=== PATIENT | male | born 1950 | race Caucasian/White ===

== ENCOUNTER 2023-08-17 09:34 | Inpatient (IN) | payer MEDICARE, OTHER ==
[~2023-08-17] VITALS: Ht 175.3 cm; Wt 83.9 kg
[~2023-08-17 09:34] MED LIST: EMPA10TA PO; ESCI10TA PO; GLIM1TAB18 PO; HYDR-3972 PO; ROSU20TA2 PO; TEST5GEL2 TD; ZOLP10TA2 PO
[2023-08-17] MEDS ORDERED: ASPIRIN 81 MG TAB.CHEW ONE (09:55)
[2023-08-17] MEDS: ASPIRIN 81 MG TAB.CHEW PO ONE (09:57)
[2023-08-17 10:14] LABS: BASOPHILS % (AUTO) 0.4 % (0.0-2.0); EOSINOPHILS # (AUTO) 0.5 K/uL (0.0-0.7); EOSINOPHILS % (AUTO) 6.3 % (0.0-6.0); HEMATOCRIT 44 % (39-51); HEMOGLOBIN 14.9 g/dL (13.5-17.5); LYMPHOCYTES # (AUTO) 1.3 K/uL (0.8-4.8); LYMPHOCYTES % (AUTO) 16.3 % (20.0-44.0); MEAN CORPUSCULAR HEMOGLOBIN 29 PG (26.0-33.0); MEAN CORPUSCULAR HGB CONC 34 g/dl (31.0-36.0); MEAN CORPUSCULAR VOLUME 85 fL (80-96); MONOCYTES # (AUTO) 0.7 K/uL (0.1-1.30); NEUTROPHILS # (AUTO) 5.6 K/uL (1.8-8.9); PLATELET COUNT (AUTO) 280 K/uL (150-450); RED BLOOD CELL COUNT(AUTO) 5.18 MIL/uL (4.5-6.0); RED CELL DISTRIBUTION WIDTH 14.6 % (11.5-15.0); WHITE BLOOD COUNT (AUTO) 8.2 K/uL (4.3-11.0)
[2023-08-17] MEDS ORDERED: IOHEXOL-350 100 ML VIAL IV ONE (10:19)
[2023-08-17] MEDS ORDERED: IV NS 0.9% 250 ML IV ONE (10:19)
[2023-08-17 10:27] LABS: CALCIUM, SERUM 8.8 mg/dL (8.5-10.1); CARBON DIOXIDE 28 mmol/L (21-32); CHLORIDE 104 mmol/L (98-107); CREATININE 0.9 mg/dL (0.6-1.3); D-DIMER 1.36 mg/L(FEU (0.17-0.50); GLUCOSE 110 mg/dL (74-106); INR 0.98 (0.91-1.10); PARTIAL THROMBOPLASTIN TIME 26.3 SEC (24.3-34.3); POTASSIUM 3.7 mmol/L (3.5-5.1); PROTHROMBIN TIME 10.4 SECS (9.2-11.1); SODIUM SERUM 140 mmol/L (136-145); UREA NITROGEN, BLOOD 10 mg/dL (7-18)
[2023-08-17] MEDS ORDERED: DULO20CA19 PO (12:01)
[2023-08-17] MEDS ORDERED: ZOLP10TA2 PO (12:01)
[2023-08-17] MEDS ORDERED: BRIM5DRO11 EACHEYE (12:01)
[2023-08-17] MEDS ORDERED: METF-881 PO (12:01)
[2023-08-17] MEDS ORDERED: ICOS1CAP PO (12:01)
[2023-08-17] MEDS ORDERED: NITROGLYCERIN 0.4 MG/TAB BOTTLE SL PRN (15:00)
[2023-08-17] MEDS ORDERED: MAGNESIUM HYDROXIDE 30 ML UDC PO PRN (15:00)
[2023-08-17] MEDS ORDERED: MORPHINE SULFATE INJ 2 MG/ML DISP.SYRIN IV PRN (15:00)
[2023-08-17] MEDS: ENOXAPARIN SODIUM 40 MG/0.4 ML DISP.SYRIN SQ SCH (15:00)
[2023-08-17] MEDS ORDERED: ONDANSETRON HCL/PF 4 MG/2 ML VIAL IVP PRN (15:00)
[2023-08-17] MEDS ORDERED: ACETAMINOPHEN 325 MG TABLET PO PRN (15:00)
[2023-08-17] MEDS ORDERED: Z GUARD REMEDY 4 OZ OINT TP PRN (15:00)
[2023-08-17] MEDS ORDERED: DEXTROSE 50%-WATER 50 ML DISP.SYRIN IV PRN (15:00)
[2023-08-17] MEDS ORDERED: ENOXAPARIN SODIUM 40 MG/0.4 ML DISP.SYRIN SQ ONE (15:12)
[2023-08-17] MEDS ORDERED: Medication Not On Formulary EA (Icosapent Ethyl (Vascepa) 1 GM) PO SCH (17:00)
[2023-08-17 18:25] VITALS: BP 139/82; TEMP 98.5; O2SAT 100
[2023-08-17] MEDS: BRIMONIDINE TARTRATE OPHT SOLN 5 ML BOTTLE EACHEYE SCH (18:39)
[2023-08-17] MEDS: ATORVASTATIN 40 MG TABLET PO SCH (18:40)
[2023-08-17] MEDS: DULOXETINE HCL 20 MG CAPSULE.DR PO SCH (18:40)
[2023-08-17] MEDS: BLOOD SUGAR DIAGNOSTIC 1 EACH STRIP VI SCH (18:40)
[2023-08-17 20:00] VITALS: BP 146/82; TEMP 97.9; O2SAT 96
[2023-08-17] MEDS: INSULIN REGULAR, HUMAN 100 UNIT/ML 3 ML VIAL SQ PRN (22:35)
[2023-08-17] MEDS: *INSULIN REGULAR(HUMULIN R)HUM 100 UNIT/ML VIAL SQ PRN (22:43)
[2023-08-17] MEDS: ZOLPIDEM TARTRATE 5 MG TABLET PO PRN (23:53)
[2023-08-17] MEDS: MAG HYDROX/AL HYDROX/SIMETH 30 ML UDC PO PRN (23:53)
[2023-08-18] VITALS: BP 133/79; TEMP 98.1; O2SAT 96
[2023-08-18] MEDS: ZOLPIDEM TARTRATE 5 MG TABLET PO ONE (01:10)
[2023-08-18 04:00] VITALS: BP 116/73; TEMP 97.7; O2SAT 96
[2023-08-18 06:52] LABS: BASOPHILS % (AUTO) 0.5 % (0.0-2.0); EOSINOPHILS # (AUTO) 0.6 K/uL (0.0-0.7); EOSINOPHILS % (AUTO) 8.2 % (0.0-6.0); HEMATOCRIT 42 % (39-51); HEMOGLOBIN 14.3 g/dL (13.5-17.5); LYMPHOCYTES # (AUTO) 1.6 K/uL (0.8-4.8); MEAN CORPUSCULAR HEMOGLOBIN 29 PG (26.0-33.0); MEAN CORPUSCULAR HGB CONC 34 g/dl (31.0-36.0); MEAN CORPUSCULAR VOLUME 85 fL (80-96); MONOCYTES # (AUTO) 0.8 K/uL (0.1-1.30); MONOCYTES % (AUTO) 11.3 % (2.0-12.0); NEUTROPHILS # (AUTO) 3.8 K/uL (1.8-8.9); PLATELET COUNT (AUTO) 271 K/uL (150-450); RED BLOOD CELL COUNT(AUTO) 4.98 MIL/uL (4.5-6.0); RED CELL DISTRIBUTION WIDTH 14.5 % (11.5-15.0); WHITE BLOOD COUNT (AUTO) 6.9 K/uL (4.3-11.0)
[2023-08-18 07:39] LABS: CALCIUM, SERUM 8.4 mg/dL (8.5-10.1); CARBON DIOXIDE 29 mmol/L (21-32); CHLORIDE 100 mmol/L (98-107); CREATININE 0.9 mg/dL (0.6-1.3); GLUCOSE 107 mg/dL (74-106); PHOSPHORUS 4.1 mg/dL (2.5-4.9); POTASSIUM 3.7 mmol/L (3.5-5.1); SODIUM SERUM 137 mmol/L (136-145); UREA NITROGEN, BLOOD 11 mg/dL (7-18)
[2023-08-18 08:00] VITALS: BP 131/83; TEMP 97.5; O2SAT 96
[2023-08-18] MEDS: METOPROLOL TARTRATE 50 MG TABLET PO SCH (08:37)
[2023-08-18 08:47] LABS: THYROID STIMULATING HORMONE 3.363 uIU/mL (0.358-3.74)
[2023-08-18 12:00] VITALS: BP 129/82; TEMP 97.9; O2SAT 97
[2023-08-18] MEDS ORDERED: ZOLPIDEM TARTRATE 5 MG TABLET PO ONE (12:48)
[2023-08-18] MEDS ORDERED: IOHEXOL-350 100 ML VIAL IV ONE (12:55)
[2023-08-18] MEDS ORDERED: CT SWABBABLE VALVE TRANS SET 1 EA INFUS.SET MC ONE (12:55)
[2023-08-18] MEDS ORDERED: IV NS 0.9% 250 ML IV ONE (12:55)
[2023-08-18] MEDS ORDERED: METOPROLOL TARTRATE 50 MG TABLET ONE (13:21)
[2023-08-18] MEDS ORDERED: METOPROLOL TARTRATE INJ 5 MG/5 ML AMPUL ONE ×4 (13:22→13:44)
[2023-08-18] MEDS: METOPROLOL TARTRATE INJ 5 MG/5 ML AMPUL IVP PRN (13:24)
[2023-08-18] MEDS: NITROGLYCERIN 0.4 MG/TAB BOTTLE SL ONE (13:58)
[2023-08-18 14:09] VITALS: BP 133/82
[2023-08-18] MEDS ORDERED: NITROGLYCERIN 0.4 MG/TAB BOTTLE ONE (15:03)
[2023-08-18] MEDS ORDERED: ZOLPIDEM TARTRATE 5 MG TABLET PO PRN (21:00)
== END 2023-08-18 15:40 | disposition home or self-care (01) | DRG 206 ==
LOC: ER 09:43 → TELE1 16:37
PROVIDERS: ADMIT Internal Medicine; ATTEND Internal Medicine
DX: M94.0 Chondrocostal junction syndrome [Tietze] (principal); E11.9 Type 2 diabetes mellitus without complications; I10 Essential (primary) hypertension; E78.5 Hyperlipidemia, unspecified; Z98.890 Other specified postprocedural states; Z79.84 Long term (current) use of oral hypoglycemic drugs; Z79.899 Other long term (current) drug therapy; Z86.718 Personal history of other venous thrombosis and embolism; F12.90 Cannabis use, unspecified, uncomplicated; Z86.711 Personal history of pulmonary embolism; Z79.01 Long term (current) use of anticoagulants
CPT/HCPCS: 36415; 71045-TC; 75574; 80048-TC; 80061-TC; 82962-TC; 83735-TC; 83880; 84100-TC; 84439-TC; 84443-TC; 84484-TC; 85025-TC; 85378-TC; 85730-TC; 93307-TC; G0378; J1650; J1815; J3490; J7050; Q9967

== ENCOUNTER 2024-11-22 19:50 | Emergency (ER) | payer OTHER, MEDICAID ==
[~2024-11-22] VITALS: Ht 175.3 cm; Wt 78.0 kg
[~2024-11-22 19:50] MED LIST changes: +BRIM5DRO11 EACHEYE; +DULO20CA19 PO; -ESCI10TA PO; -GLIM1TAB18 PO; -HYDR-3972 PO; +ICOS1CAP PO; +METF-881 PO; -TEST5GEL2 TD
[2024-11-22] MEDS: IV NS 0.9% 1,000 ML BAG IV ONE (20:57)
[2024-11-22] MEDS ORDERED: CEFEPIME 1 GM VIAL ONE (21:00)
[2024-11-22 21:05] LABS: PLATELET COUNT (AUTO) 287 K/uL (150-450); RED BLOOD CELL COUNT(AUTO) 5.38 MIL/uL (4.5-6.0); RED CELL DISTRIBUTION WIDTH 16.6 % (11.5-15.0); WHITE BLOOD COUNT (AUTO) 5.6 K/uL (4.3-11.0)
[2024-11-22] MEDS: CEFEPIME 1 GM in IV D5W 50 ML IV ONE (21:05)
[2024-11-22 21:17] LABS: CALCIUM, SERUM 8.7 mg/dL (8.5-10.1); CREATININE 1.2 mg/dL (0.6-1.3); SODIUM SERUM 140 mmol/L (136-145); UREA NITROGEN, BLOOD 26 mg/dL (7-18)
[2024-11-22 21:22] LABS: ASPARTATE AMINOTRANSFERASE 26 U/L (15-37); TOTAL PROTEIN, SERUM 7.7 g/dL (6.4-8.2)
[2024-11-22 21:32] LABS: LACTIC ACID 2.0 mmol/L (0.4-2.0)
[2024-11-22] MEDS ORDERED: VANCOMYCIN 1 GM /D5W 250 ML PB IV ONE (21:40)
[2024-11-22 21:44] LABS: INR 0.98 (0.91-1.10)
[2024-11-22] MEDS ORDERED: IBUP-1490 PO (21:45)
[2024-11-22] MEDS ORDERED: AMOX-430 PO (21:45)
[2024-11-22] MEDS: VANCOMYCIN 1 GM in IV D5W 250 ML IV ONE (21:48)
[2024-11-22 22:28] VITALS: BP 118/70; TEMP 98; O2SAT 98
== END 2024-11-22 22:28 | disposition home or self-care (01) ==
LOC: ER 20:05
DX: L03.115 Cellulitis of right lower limb (principal); R20.2 Paresthesia of skin; R60.0 Localized edema; E11.9 Type 2 diabetes mellitus without complications; E86.0 Dehydration; M79.604 Pain in right leg; I10 Essential (primary) hypertension; Z79.84 Long term (current) use of oral hypoglycemic drugs; Z86.79 Personal history of other diseases of the circulatory system; Z60.2 Problems related to living alone
CPT/HCPCS: 99285; 96365; 93971; 71045; 96367; 93005; 85025; 80048; 87040 ×2; 83605; 80076; 36415; 85730; J3373 ×2; J7060 ×2; J7030; J0692 ×2; A4223

== ENCOUNTER 2024-11-27 05:20 | Emergency (ER) | payer OTHER, MEDICAID ==
[~2024-11-27] VITALS: Ht 175.3 cm; Wt 78.0 kg
[~2024-11-27 05:20] MED LIST changes: +AMOX-430 PO; +IBUP-1490 PO
[2024-11-27 06:25] VITALS: BP 119/71; TEMP 98.1; O2SAT 98
== END 2024-11-27 06:47 | disposition home or self-care (01) ==
LOC: ER 05:25
DX: S02.2XXA Fracture of nasal bones, initial encounter for closed fracture (principal); E11.9 Type 2 diabetes mellitus without complications; Z79.84 Long term (current) use of oral hypoglycemic drugs; W23.0XXA Caught, crushed, jammed, or pinched between moving objects, initial encounter; Y93.89 Activity, other specified; Y92.89 Other specified places as the place of occurrence of the external cause; Y99.8 Other external cause status